=== PATIENT | male | born 1945 | race Caucasian/White ===

== ENCOUNTER 2019-12-27 23:54 | Inpatient (IN) | payer OTHER ==
[~2019-12-27] VITALS: Ht 167.6 cm; Wt 79.8 kg
--- NOTE | ~2019-12-27 | CON ---
[address] [address] CONSULTATION Name: FOZIA ALONSO Room: [address] IN M.R.#: [id number] Admission: 12/28/19 Attend Phys: Laney Trejo MD Discharge: Date of : 47 Report #: [id number] THIS REPORT FOR: //name// cc: KARUNA Clayton family physician/PCP KARUNA - No family physician/PCP ~ THIS REPORT FOR: //name// CC: KARUNA physician/PCP Laney Trejo CONSULTING PHYSICIAN: Dr. Trejo. REASON FOR CONSULTATION: End-stage kidney disease. HISTORY OF PRESENT ILLNESS: A 74-year-old gentleman with history of end-stage kidney disease, on hemodialysis Sunday, Sunday and Sunday. Had his last dialysis on Sunday, admitted with chest pain. He had serial troponins which were unrevealing and was found to have elevated potassium value of 6.3. He had a chest x-ray, which did not show any evidence of pulmonary edema, appears to be comfortable. He is no longer having any chest pain or shortness of breath. He is hoping to go home today and overall appears to be comfortable. REVIEW OF SYSTEMS: Constitutional, psych, heme, eyes, ENT, respiratory, cardiac, GI, , endocrine, all negative except as documented above. PAST MEDICAL HISTORY: End-stage kidney disease, coronary artery disease, hypertension, secondary hyperparathyroidism. MEDICATIONS: Reviewed. SOCIAL HISTORY: Former smoker. FAMILY HISTORY: Not pertinent in this 74-year-old gentleman. PHYSICAL EXAMINATION: VITAL SIGNS: Blood pressure 116/53, pulse 57, temperature 36.4, respirations 16. GENERAL: No acute distress. EYES: Open. EARS: Externally normal. NECK: Supple. CARDIOVASCULAR: Regular rate and rhythm. LUNGS: No crackles. ABDOMEN: Soft. MUSCULOSKELETAL: Nontender. PSYCHIATRIC: Awake, [place] [address] CONSULTATION Name: FOZIA ALONSO Room: [address]#: [id number] Admission: 12/28/19 Attend Phys: Laney Trejo MD Discharge: Date of : 47 Report #: [id number] LABORATORY DATA: White cell count 7.6, hemoglobin 11.2, platelets 201. Sodium 137, potassium 6.3, chloride 96, bicarbonate 31, BUN 43, creatinine 9.5, glucose 121, calcium 9.5, magnesium 2.9. ASSESSMENT: 1. End-stage kidney disease, hemodialysis Sunday, Sunday and Sunday at the [facility]. 2. Hyperkalemia. Has been consuming higher potassium foods recently. No constipation. 3. Secondary hyperparathyroidism, on sevelamer. PLAN: We will plan a short dialysis today for 2 hours to help lower the potassium. The patient was educated on low potassium diet and will be followed by renal dietitian at the outpatient dialysis unit. We would avoid morphine in the setting of end-stage kidney disease. A discharge planning for later today after dialysis is okay from my standpoint. He will have his routine dialysis tomorrow, which can be done as an outpatient or if he remains inpatient, we will plan to dialyze him here tomorrow. Thank you for requesting my opinion in the care and management of this patient. By: 1148 1931Abizbigniew Ponce MD /nt
[2019-12-27 23:56] VITALS: BP 130/76
[2019-12-28 00:49] LABS: ABSOLUTE EOSINOPHILS 0.1 thou/uL (0.0-0.7); ABSOLUTE LYMPHOCYTES 0.9 thou/uL (0.8-5.3); ABSOLUTE MONOCYTES 0.8 thou/uL (0.0-1.2); ABSOLUTE NEUTROPHILS 5.7 thou/uL (1.6-8.1); BASOPHILS 0.5 %; EOSINOPHILS 1.2 %; HEMATOCRIT 32.1 % (42.0-52.0); HEMOGLOBIN 11.2 gm/dL (14.0-18.0); LYMPHOCYTES 12.2 %; MCH 34.2 pg (26.0-34.0); MCHC 34.9 g/dL (28.0-37.0); MCV 97.9 fL (80.0-100.0); MONOCYTES 10.5 %; MPV 7.4 fl. (7.2-11.1); NUCLEATED RBCS 0 /100WBC; PLATELET COUNT* 201 thou/uL (150-400); POLYS 75.6 %; RBC 3.27 mil/uL (4.50-6.00); RDW-CV 15.1 % (10.5-14.5); WBC 7.6 thou/uL (4.0-11.0)
[2019-12-28 01:06] LABS: CALCIUM 9.5 mg/dL (8.5-10.1); CREATININE 9.5 mg/dL (0.6-1.3)
[2019-12-28 01:10] LABS: POTASSIUM 6.3 mmol/L (3.5-5.1)
[2019-12-28 01:16] LABS: ALBUMIN 3.8 g/dL (3.4-5.0); MAGNESIUM 2.9 mg/dL (1.8-2.4); TOTAL BILIRUBIN 0.4 mg/dL (<0.1-1.0); TOTAL PROTEIN 7.4 g/dL (6.4-8.2)
[2019-12-28] MEDS ORDERED: ATIVAN1 M1 PO (02:09)
[2019-12-28] MEDS ORDERED: CARAFATE1 GM PO (02:09)
[2019-12-28 02:16] VITALS: BP 125/66
[2019-12-28 02:30] VITALS: BP 174/96
[2019-12-28] MEDS ORDERED: PROAIR HFA8.5 GM INH (03:06)
[2019-12-28] MEDS ORDERED: LIPITOR 40 MG T40 M1 PO (03:08)
[2019-12-28] MEDS ORDERED: ASPIRIN EC81 M1 PO (03:08)
[2019-12-28] MEDS ORDERED: WELLBUTRIN XL300 MG PO (03:09)
[2019-12-28] MEDS ORDERED: CARVEDILOL25 MG PO (03:09)
[2019-12-28] MEDS ORDERED: FLOMAX0.4 MG PO ×2 (03:10→03:11)
[2019-12-28] MEDS ORDERED: DIALYVITE TABL1 EACH PO (03:10)
[2019-12-28] MEDS ORDERED: FISH OIL 1,0001 EAC9 PO (03:10)
[2019-12-28] MEDS ORDERED: FLONASE 0.05%50 MCG NARES (03:11)
[2019-12-28] MEDS ORDERED: FUROSEMIDE 20 M20 MG PO ×2 (03:13→03:14)
[2019-12-28] MEDS ORDERED: VISTARIL 25 MG25 M1 PO (03:13)
[2019-12-28] MEDS ORDERED: NITROSTAT0.4 M1 SUBLING (03:23)
[2019-12-28] MEDS ORDERED: PRAZOSIN 1 MG CA1 M1 PO (03:24)
[2019-12-28] MEDS ORDERED: RENVELA0.8 GM PO (03:25)
[2019-12-28] MEDS ORDERED: DESYREL150 MG PO (03:27)
[2019-12-28] MEDS ORDERED: ONDANSETRON HCL4 M2 PO (03:28)
[2019-12-28] MEDS ORDERED: XANAX 0.5 MG0.5 M1 PO (03:28)
[2019-12-28] MEDS ORDERED: ZOLOFT100 MG PO (03:29)
[2019-12-28 04:20] VITALS: BP 103/57
[2019-12-28 08:23] VITALS: BP 116/53
--- NOTE | 2019-12-28 10:40 | EKG ---
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
[2019-12-28 12:37] VITALS: BP 108/49
[2019-12-28 20:00] VITALS: BP 116/67; BP 129/65
[2019-12-29 00:10] VITALS: BP 87/51
[2019-12-29 04:34] VITALS: BP 86/37
[2019-12-29 06:07] VITALS: BP 110/55
[2019-12-29 07:59] VITALS: BP 124/52
[2019-12-29] MEDS ORDERED: LOPRESSOR50 MG PO (09:34)
[2019-12-29] MEDS ORDERED: TOPROL XL25 MG PO (09:35)
[2019-12-29 10:10] LABS: ABSOLUTE EOSINOPHILS 0.1 thou/uL (0.0-0.7); ABSOLUTE LYMPHOCYTES 0.8 thou/uL (0.8-5.3); ABSOLUTE MONOCYTES 0.6 thou/uL (0.0-1.2); ABSOLUTE NEUTROPHILS 5.1 thou/uL (1.6-8.1); BASOPHILS 0.5 %; EOSINOPHILS 1.8 %; HEMATOCRIT 32.7 % (42.0-52.0); HEMOGLOBIN 11.3 gm/dL (14.0-18.0); LYMPHOCYTES 11.7 %; MCH 33.9 pg (26.0-34.0); MCHC 34.6 g/dL (28.0-37.0); MONOCYTES 9.5 %; MPV 7.4 fl. (7.2-11.1); NUCLEATED RBCS 0 /100WBC; PLATELET COUNT* 187 thou/uL (150-400); POLYS 76.5 %; RBC 3.33 mil/uL (4.50-6.00); RDW-CV 15.2 % (10.5-14.5); WBC 6.6 thou/uL (4.0-11.0)
[2019-12-29 10:17] LABS: CALCIUM 9.2 mg/dL (8.5-10.1); CREATININE 8.9 mg/dL (0.6-1.3); MAGNESIUM 2.4 mg/dL (1.8-2.4); PHOSPHORUS* 5.3 mg/dL (2.5-4.9); POTASSIUM 5.6 mmol/L (3.5-5.1)
[2019-12-29 11:30] VITALS: BP 121/59
[2019-12-29 14:06] VITALS: BP 121/59
[2019-12-30 07:36] LABS: HEPATITIS B SURFACE AG Negative (Negative)
== END 2019-12-29 18:20 | disposition home or self-care (01) | DRG 304 ==
LOC: M.ERS 23:54 → M.2W 12-28 01:38 → M.TBA-ER 12-28 01:38 → M.2W 12-28 02:25
PROVIDERS: Emergency Medicine Emergency Medical Services; Internal Medicine Nephrology; ADMIT Internal Medicine
PROC: 5A1D70Z Performance of Urinary Filtration, Intermittent, Less than 6 Hours Per Day (ICD-10-PCS; principal; 2019-12-28)
PROC: 5A1D70Z Performance of Urinary Filtration, Intermittent, Less than 6 Hours Per Day (ICD-10-PCS; 2019-12-29)
DX: I16.1 Hypertensive emergency (principal); N18.6 End stage renal disease; N25.81 Secondary hyperparathyroidism of renal origin; R07.89 Other chest pain; I12.0 Hypertensive chronic kidney disease with stage 5 chronic kidney disease or end stage renal disease; F41.9 Anxiety disorder, unspecified; E87.5 Hyperkalemia; Z99.2 Dependence on renal dialysis; Z95.5 Presence of coronary angioplasty implant and graft; Z79.899 Other long term (current) drug therapy; Z87.891 Personal history of nicotine dependence; Z88.8 Allergy status to other drugs, medicaments and biological substances

== ENCOUNTER 2020-01-02 05:48 | Inpatient (IN) | payer OTHER ==
[2020-01-02] VITALS (12 sets, daily range): BP systolic 102–171; BP diastolic 53–86
[~2020-01-02] VITALS: Ht 167.6 cm; Wt 80.7 kg
--- NOTE | ~2020-01-02 | CON ---
[address] [address] CONSULTATION Name: FOZIA ALONSO Room: [address] IN M.R.#: [id number] Admission: 01/02/20 Attend Phys: Esteban Casarez MD Discharge: Date of : 47 Report #: [id number] THIS REPORT FOR: //name// cc: Kamron Baron MD, Santosh MD ~ THIS REPORT FOR: //name// CC: Esteban Steen leydi Baron DATE OF SERVICE: 01/02/2020 REQUESTING PHYSICIAN: Esteban Casarez MD REASON FOR CONSULTATION: Assist in providing dialysis. HISTORY OF PRESENT ILLNESS: The patient is a very pleasant 74-year-old gentleman with medical history significant for end-stage renal disease, hypertension, coronary artery disease, BPH, presents to the hospital with complaints of chest pain. The patient states that the pain started a couple days ago. It was off and on, but now it is very severe, retrosternal and intractable. Pain associated with some nausea and not feeling well. He was seen by saw filer, was taken to cardiac microbiology lab analyst and cardiac catheterization was performed. The 2 stents were placed in the coronaries. I do not know, which arteries were angioplastied. We do not have report from the cardiac catheterization yet. MEDICAL HISTORY: 1. End-stage renal disease, on dialysis Sunday, Sunday, Sunday schedule at [facility]. 2. Hypertension. 3. BPH. 4. Coronary artery disease. 5. Hypercholesterolemia. MEDICATIONS: Prior to admission reviewed. FAMILY HISTORY: Positive for coronary artery disease and hypertension. SOCIAL HISTORY: No tobacco, no alcohol abuse. PAST SURGICAL HISTORY: He has a stent placed in the coronaries in the past and also has creation of the left radiocephalic fistula. REVIEW OF SYSTEMS: Positive for the symptoms [place] [address] CONSULTATION Name: FOZIA ALONSO Room: [address] IN [facility]#: [id number] Admission: 01/02/20 Attend Phys: Esteban Casarez MD Discharge: Date of : 47 Report #: [id number] Post-procedure, now he feels much better, no more chest pain. PHYSICAL EXAMINATION: GENERAL: Awake, alert, oriented, no acute distress. VITAL SIGNS: Now blood pressure is 160/86, heart rate 81, afebrile. HEENT: Pupils are round. NECK: Supple. LUNGS: Clear. CARDIOVASCULAR: Regular rate. ABDOMEN: Soft. LOWER EXTREMITIES: No edema. ASSESSMENT: 1. End-stage renal disease. 2. Coronary artery disease with unstable angina. 3. Hypertension. 4. Hyperlipidemia. PLAN: The patient had an emergent cardiac catheterization done with angioplasty of coronary arteries and placement of 2 stents. He feels much better. Today is his dialysis day, so we will take him to dialysis. Thank you very much. By: 1151 2150Alepablito Nassar MD /JH
[~2020-01-02 05:48] MED LIST: ASPIRIN EC81 M1 PO; ATIVAN1 M1 PO; CARAFATE1 GM PO; CARVEDILOL25 MG PO; DESYREL150 MG PO; DIALYVITE TABL1 EACH PO; FISH OIL 1,0001 EAC9 PO; FLOMAX0.4 MG PO; FLONASE 0.05%50 MCG NARES; FUROSEMIDE 20 M20 MG PO; LIPITOR 40 MG T40 M1 PO; LOPRESSOR50 MG PO; NITROSTAT0.4 M1 SUBLING; ONDANSETRON HCL4 M2 PO; PRAZOSIN 1 MG CA1 M1 PO; PROAIR HFA8.5 GM INH; RENVELA0.8 GM PO; TOPROL XL25 MG PO; VISTARIL 25 MG25 M1 PO; WELLBUTRIN XL300 MG PO; XANAX 0.5 MG0.5 M1 PO; ZOLOFT100 MG PO
[2020-01-02 06:16] LABS: ABSOLUTE EOSINOPHILS 0.1 thou/uL (0.0-0.7); ABSOLUTE LYMPHOCYTES 1.2 thou/uL (0.8-5.3); ABSOLUTE MONOCYTES 0.8 thou/uL (0.0-1.2); ABSOLUTE NEUTROPHILS 4.6 thou/uL (1.6-8.1); BASOPHILS 0.6 %; EOSINOPHILS 1.7 %; HEMATOCRIT 33.6 % (42.0-52.0); HEMOGLOBIN 11.7 gm/dL (14.0-18.0); LYMPHOCYTES 17.4 %; MCH 33.9 pg (26.0-34.0); MCHC 34.7 g/dL (28.0-37.0); MCV 97.6 fL (80.0-100.0); MONOCYTES 11.7 %; MPV 7.1 fl. (7.2-11.1); NUCLEATED RBCS 0 /100WBC; PLATELET COUNT* 205 thou/uL (150-400); POLYS 68.6 %; RBC 3.44 mil/uL (4.50-6.00); RDW-CV 14.9 % (10.5-14.5); WBC 6.8 thou/uL (4.0-11.0)
[2020-01-02 06:25] LABS: CALCIUM 9.5 mg/dL (8.5-10.1); POTASSIUM 4.2 mmol/L (3.5-5.1)
[2020-01-02 06:29] LABS: PROTIME 10.2 Seconds (9.20-11.50)
[2020-01-02 06:40] LABS: ALBUMIN 4.4 g/dL (3.4-5.0); TOTAL BILIRUBIN 0.5 mg/dL (<0.1-1.0); TOTAL PROTEIN 8.1 g/dL (6.4-8.2)
--- NOTE | 2020-01-02 09:15 | EKG ---
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 : 1945 Requested By: Gloria River Order Number: [id number] MD: Enio Cruz Measurements Intervals [place] Rate: 71 P: 71 FL: 189 QRS: 53 QRSD: 87 T: 111 QT: 388 QTc: 422 Interpretive Statements Sinus rhythm Repol abnrm suggests ischemia, diffuse leads Baseline wander in lead(s) V1,V2 Compared to ECG 12/27/2019 23:56:20 Possible ischemia now present Electronically Signed On 01-02-2020 9:14:19 CDT by Enio Cruz [email or web address] <ELECTRONICALLY SIGNED> By: Enio Cruz MD, FACC 01/02/20 0914 0552 0552 Enio Cruz MD, [facility] /EPI
--- NOTE | 2020-01-02 14:28 | CARD ---
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 Procedure Narrative The patient was brought electively to the Cardiac Catheterization Laboratory and was prepped and draped in a sterile manner. The right wrist was infiltrated with 2% Lidocaine subcutaneous anesthesia. A 6 Fr Slender [place] sheath was inserted into the right radial artery. Coronary angiography was performed using coronary diagnostic catheters. The right coronary system was accessed and visualized with a Diagnostic 6 Fr JR 4 catheter. The left coronary system was accessed and visualized with a Diagnostic 6 Fr JL 4 catheter. The left ventricle was accessed and visualized with a Diagnostic 6 [place] [address] CARDIAC CATH REPORT Name: FOZIA ALONSO Room: [address]#: [id number] Admission: 01/02/20 Attend Phys: Esteban Casarez MD Discharge: Date of : 47 Report #: [id number] Pigtail catheter. Left ventricular/Aortic Valve gradient assessed via catheter pullback. Left ventriculogram was performed in FLEMING projection. Closure device was deployed with a Fr vascband. The patient tolerated the procedure well and there were no complications associated with the procedure. There was no hematoma. Intraoperative Conscious Sedation Sedation start time: 09:16 Case end Time: 10:54 Fentanyl 50.0 mcg Versed 4.0 mg Fluoro Time: 21.2 minutes Dose: DAP 240751 cGycm2 2864 mGy Contrast Type and Amount: Visipaque 370 ml Coronary Angiography The patient's coronary anatomy is co- dominant. Diagnostic Cath Left Main 30% distal stenosis LAD 50% mid stenosis Diagonal 2 90% ostial stenosis Circumflex 90% stenosis after the first marginal distal stent with 0% restenosis OM2 70% proximal stenosis noted Right Coronary Abnormal anterior takeoff from the right coronary cusp with subtotal occlusion with a 99% proximal and 99% mid stenosis. There was YANIRA grade II flow with retrograde filling by collaterals from the left coronary artery. Left Ventriculography The left ventricular ejection fraction is estimated to be 55-60%. Left ventricular wall motion abnormalities are not present. There is no mitral insufficiency. Hemodynamics The aortic pressure is 79/41 mmHg with a mean of 56 mmHg. The left ventricular pressure is 112/1 mmHg with a mean of mmHg. The left ventricular end diastolic pressure is 13 mmHg. There was no gradient across the aortic valve upon pullback. Pullback from the left ventricle to the aorta revealed no gradient across the aortic valve. PCI Technique Lesion Anticoagulation was achieved with Heparin. Patient was preloaded with 7.5 ml Aggrastat. Percutaneous coronary [place] [address] CARDIAC CATH REPORT Name: FOZIA ALONSO Room: [address]#: [id number] Admission: 01/02/20 Attend Phys: Esteban Casarez MD Discharge: Date of : 46 Report #: [id number] the mid right coronary artery. The lesion stenosis prior to intervention was 99% with YANIRA 2 flow. A MPA Guide Catheter was used to engage the rca ostium. A choice PT extra support Interventional Guidewire was used to cross the lesion. BALLOON DILATION A Balloon catheter 2.5 x 12 mm was inserted and inflated up to 12atm for 15seconds. Repeat angiography revealed the following post-dilatation results: 40% stenosis with small dissection. Additional Inflation: 14atm for 15seconds. BMW wire was unable to cross the stenosis STENT DEPLOYMENT A drug-eluting stent 2.5x 12 mm was inserted and inflated up to 11atm for 10 secondsseconds. Repeat angiography revealed the following post-stent deployment results: 30% stenosis. Additional Inflation: 12atm for 15seconds. Unable to place a 28 x 2.5 mm drug Xience eluting stent because of lack of guide support. After placing a shorter stent distally, a second drug eluting stent which was 2.5 x 18 mm stent was placed proximally so that there was minimal overlap between the 2 stents. That stent was inserted and inflated up to 14 delma for 19 seconds. POST STENT DEPLOYMENT BALLOON DILATION A Balloon catheter 2.5 x 12 mm was inserted and inflated up to 18atm for 15 secondsseconds. Repeat angiography revealed the following post-dilatation results: 0% stenosis. Additional Inflation: 20atm for 15seconds. Final angiography reveals 0 % stenosis with YANIRA 3 flow. COMMENTS Final result noted that the distal rca beyond the stent had a narrow lumen. Conclusion 1. 90% stenosis of the ostium of the second diagonal branch 2. 90% stenosis of the circumflex beyond the first marginal branch. No restenosis noted of a stent in the distal circumflex. 3. subtotal 99% stenosis of the rca 4. LVEF 55-60% 5. successful placement of 2 drug eluting stents in the rca Recommendations Plan stenting of the diagonal branch and circumflex at a later [address] [place] [address] CARDIAC CATH REPORT Name: FOZIA ALONSO Room: [address] IN M.R.#: [id number] Admission: 01/02/20 Attend Phys: Esteban Casarez MD Discharge: Date of : 47 Report #: [id number] Medications Administered Clopidogrel <ELECTRONICALLY SIGNED> By: Enio Cruz MD, FACC 01/02/20 1427 142 1427Dasolange Cruz MD, FACC /INF
--- NOTE | 2020-01-02 14:47 | EKG ---
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1945 Requested By: Enio Cruz Order Number: [id number] Shaista MD: Enio Cruz Measurements Intervals [place] Rate: 62 P: 50 FL: 205 QRS: 6 QRSD: 90 T: 117 QT: 410 QTc: 417 Interpretive Statements Sinus rhythm Inferior infarct, old Lateral leads are also involved Compared to ECG 01/02/2020 05:52:20 Myocardial infarct finding now present Possible ischemia no longer present Electronically Signed On 01-02-2020 14:46:03 CDT by Enio Cruz [email or web address] <ELECTRONICALLY SIGNED> By: Enio Cruz MD, [facility] 01/02/20 1446 1404 1404 Enio Cruz MD, [facility] /EPI
--- NOTE | 2020-01-02 15:22 | CON ---
[address] [address] CONSULTATION Name: FOZIA ALONSO Room: [address] IN .R.#: [id number] Admission: 01/02/20 Attend Phys: Esteban Casarez MD Discharge: Date of : 47 Report #: [id number] THIS REPORT FOR: //name// cc: Kamron Baron MD, Santosh MD ~ THIS REPORT FOR: //name// CC: Esteban Baron HISTORY OF PRESENT ILLNESS: The patient is a 74-year-old single white male who I was asked to see in the Emergency Room after he complained of chest pain. The patient is single and not very active at this time. He receives most of his medical care at the [facility]. According to the patient, he presented with shortness of breath several years ago. He was found to have coronary artery disease and had a stent placed from the right femoral artery. He apparently took Plavix for a year. He subsequently developed end-stage renal disease and about 14 months ago, he was placed on hemodialysis. He does have a fistula in his left arm. He goes to dialysis Sunday, Sunday and Sunday. He was doing well until the past several weeks, he has been having intermittent pressure in his chest, goes into his arms and jaw. It can make him nauseated. Describes a heavy sensation. Today, he woke up and was driving to dialysis. He again had pressure in his chest. He was told to come to the hospital and he drove himself. At this time, the pain is improved. He was given nitroglycerin. He denied the pain being related to food. He has had no fever, cough, bleeding. Denied trauma to his chest or rash. He denies any exertional dyspnea, palpitations, syncope, or peripheral edema. PAST MEDICAL HISTORY: Otherwise, he has had previous wrist surgery, cataract extraction, glucose intolerance, hypertension, hyperlipidemia. MEDICATIONS: Consist of metoprolol, which recently decreased to just 0.5 mg twice a day because of low blood pressure. He takes aspirin, Lipitor, Wellbutrin, Flomax, prazosin, Xanax, and sertraline. He uses albuterol inhaler. ALLERGIES: HE HAS AN ALLERGY TO TERAZOSIN, LISINOPRIL, NIACIN. FAMILY HISTORY: Negative for heart disease. SOCIAL HISTORY: He is single, lives in [place]. 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 Quit smoking years ago. No longer drinks alcohol. REVIEW OF SYSTEMS: No history of stroke. He has asthma. No history of GI bleeding. No liver disease. No cancer. He has PTSD. No chronic skin condition. PHYSICAL EXAMINATION: [place] [address] CONSULTATION Name: FOZIA ALONSO Room: [address] IN [facility]#: [id number] Admission: 01/02/20 Attend Phys: Esteban Casarez MD Discharge: Date of : 47 Report #: [id number] GENERAL: Revealed an elderly male, lying in bed, appeared in no distress. VITAL SIGNS: He had a blood pressure of 130/80, pulse 70, he is afebrile. HEENT: He was anicteric. Conjunctivae pink. Mucous membranes are moist. NECK: Veins nondistended. No carotid bruits. CHEST: Clear to auscultation. CARDIOVASCULAR: Regular rate and rhythm, no murmur or rub. ABDOMEN: Soft. EXTREMITIES: Had no edema. Posterior tibial pulse 2+ bilaterally. SKIN: Warm, dry. NEUROLOGIC: Nonfocal. RADIOLOGICAL STUDIES: ECG, sinus rhythm, nonspecific ST and T-wave change. His workup, he had a portable chest x-ray that showed normal heart size and clear lung kim. LABORATORY DATA: Sodium 140, BUN 50, creatinine 10.0, glucose 175. Liver function studies were normal. Troponin 0.07. BNP 3227. White blood cell count 6.8 and hematocrit 33.6. IMPRESSION AND RECOMMENDATIONS: 1. Unstable angina. Previous stent. Recommend cardiac catheterization. 2. Hyperlipidemia. The patient is on a statin drug. 3. End-stage renal disease. The patient is on hemodialysis. 4. Glucose intolerance. 5. Posttraumatic stress disorder. <ELECTRONICALLY SIGNED> By: Enio Cruz MD, FACC 01/02/20 1522 0829 0915Dasolange Cruz MD, FACC /nt
[2020-01-03] VITALS: BP 132/75
[2020-01-03 04:00] VITALS: BP 107/41
[2020-01-03 04:59] LABS: ABSOLUTE EOSINOPHILS 0.1 thou/uL (0.0-0.7); ABSOLUTE LYMPHOCYTES 0.8 thou/uL (0.8-5.3); ABSOLUTE MONOCYTES 0.9 thou/uL (0.0-1.2); ABSOLUTE NEUTROPHILS 6.4 thou/uL (1.6-8.1); BASOPHILS 0.3 %; EOSINOPHILS 1.4 %; HEMATOCRIT 31.8 % (42.0-52.0); HEMOGLOBIN 11.1 gm/dL (14.0-18.0); LYMPHOCYTES 9.7 %; MCH 34.4 pg (26.0-34.0); MCV 98.1 fL (80.0-100.0); MONOCYTES 11.1 %; MPV 7.8 fl. (7.2-11.1); NUCLEATED RBCS 0 /100WBC; PLATELET COUNT* 186 thou/uL (150-400); POLYS 77.5 %; RBC 3.24 mil/uL (4.50-6.00); RDW-CV 14.8 % (10.5-14.5); WBC 8.3 thou/uL (4.0-11.0)
[2020-01-03 05:22] LABS: ANION GAP 10 mmol/L (7-16); BUN 25 mg/dL (7-18); CALCIUM 8.6 mg/dL (8.5-10.1); CHLORIDE 97 mmol/L (98-107); CHOLESTEROL 117 mg/dL (<200); CO2 29 mmol/L (21-32); CREATININE 6.5 mg/dL (0.6-1.3); GLUCOSE 89 mg/dL (70-99); HDL CHOLESTEROL 46 mg/dL (>40); LDL CHOLESTEROL 50 mg/dL (<100); POTASSIUM 4.5 mmol/L (3.5-5.1); SERUM ASSESSMENT CLEAR; SODIUM 136 mmol/L (136-145); TC:HDL 2.5 Ratio (Not establshd); TRIGLYCERIDE 108 mg/dL (<150); VLDL 22 mg/dL (<40)
[2020-01-03 05:23] LABS: TROPONIN-I LEVEL 2.15 ng/mL (<0.06)
[2020-01-03 08:00] VITALS: BP 112/57
--- NOTE | 2020-01-03 11:23 | EKG ---
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1945 Requested By: Enio Cruz Order Number: [id number] Reading MD: Harjeet Zepeda Measurements Intervals [place] Rate: 66 P: 46 HI: 188 QRS: 8 QRSD: 80 T: 94 QT: 414 QTc: 434 Interpretive Statements Sinus rhythm Low voltage, precordial leads Nonspecific repol abnormality, lateral leads Baseline wander in lead(s) V6 Compared to ECG 01/02/2020 14:04:09 Low QRS voltage now present Early repolarization now present Myocardial infarct finding no longer present Electronically Signed On 01-03-2020 11:21:35 CDT by Harjeet Zepeda [email or web address] <ELECTRONICALLY SIGNED> By: Tamara Zepeda MD, [facility] 01/03/20 1121 4 4 Tamara Zepeda MD, [facility] /EPI
[2020-01-03 12:00] VITALS: BP 136/74
[2020-01-03 16:00] VITALS: BP 144/70
[2020-01-04] VITALS: BP 119/55
[2020-01-04 03:07] LABS: GLYCOHEMOGLOBIN (HGB A1C) 5.2 % (4.8-5.6)
[2020-01-04 04:00] VITALS: BP 108/60
[2020-01-04 05:09] LABS: ABSOLUTE EOSINOPHILS 0.1 thou/uL (0.0-0.7); ABSOLUTE LYMPHOCYTES 1.2 thou/uL (0.8-5.3); ABSOLUTE NEUTROPHILS 5.2 thou/uL (1.6-8.1); BASOPHILS 0.4 %; EOSINOPHILS 1.9 %; HEMATOCRIT 29.1 % (42.0-52.0); HEMOGLOBIN 10.3 gm/dL (14.0-18.0); LYMPHOCYTES 15.4 %; MCH 34.5 pg (26.0-34.0); MCHC 35.5 g/dL (28.0-37.0); MCV 97.3 fL (80.0-100.0); MONOCYTES 12.8 %; MPV 7.8 fl. (7.2-11.1); NUCLEATED RBCS 0 /100WBC; PLATELET COUNT* 172 thou/uL (150-400); POLYS 69.5 %; WBC 7.5 thou/uL (4.0-11.0)
[2020-01-04 05:31] LABS: CALCIUM 8.6 mg/dL (8.5-10.1); POTASSIUM 5.1 mmol/L (3.5-5.1)
[2020-01-04 05:41] LABS: CREATININE 9.2 mg/dL (0.6-1.3)
[2020-01-04 07:45] VITALS: BP 118/53
[2020-01-04 11:51] VITALS: BP 112/57
[2020-01-04 16:00] VITALS: BP 111/42
[2020-01-04 20:00] VITALS: BP 126/49
[2020-01-05] VITALS (17 sets, daily range): BP systolic 81–138; BP diastolic 29–89
[2020-01-05 04:53] LABS: ABSOLUTE EOSINOPHILS 0.1 thou/uL (0.0-0.7); ABSOLUTE LYMPHOCYTES 1.2 thou/uL (0.8-5.3); ABSOLUTE MONOCYTES 0.7 thou/uL (0.0-1.2); BASOPHILS 0.2 %; EOSINOPHILS 1.7 %; HEMATOCRIT 28.3 % (42.0-52.0); HEMOGLOBIN 10.3 gm/dL (14.0-18.0); LYMPHOCYTES 16.8 %; MCH 35.4 pg (26.0-34.0); MCHC 36.4 g/dL (28.0-37.0); MCV 97.3 fL (80.0-100.0); MONOCYTES 10.1 %; MPV 7.8 fl. (7.2-11.1); NUCLEATED RBCS 0 /100WBC; PLATELET COUNT* 165 thou/uL (150-400); POLYS 71.2 %; RDW-CV 14.8 % (10.5-14.5); WBC 7.1 thou/uL (4.0-11.0)
[2020-01-05 05:17] LABS: CALCIUM 8.5 mg/dL (8.5-10.1); CREATININE 11.2 mg/dL (0.6-1.3); POTASSIUM 5.8 mmol/L (3.5-5.1)
--- NOTE | 2020-01-05 17:22 | CARD ---
[facility] [address] [place] [address] CARDIAC CATH REPORT Name: FOZIA ALONSO Room: [address] IN [facility]#: [id number] Admission: 01/02/20 Attend Phys: Esteban Casarez MD Discharge: Date of : 47 Report #: [id number] THIS REPORT FOR: //name// cc: Kamron Baron MD, Santosh MD ~ APPROVED REPORT Study performed: 01/05/2020 13:38:03 Patient Details Patient Status: In-Patient Room #: 201 The patient is a 74 year-old male Event Personnel Enio Cruz Sales Forecast Analyst, Perico Gonzalez RN Metal Bonding Crib AttendantFranc Tina RN Monitor, Deanna King, RTR Scrub Procedures Performed Art Access - R radial artery PATRICIA Place w/wo Plasty diagonal C[address] w/wo Plasty Single CIRC [id number] Hemostasis with Hemoband Indication Chest pain Risk Factors Hypercholesterolemia, Coronary Artery DiseaseRenal Failure Admission/Lab Medications/Medications given during procedure Heparin Unfract. Procedure Narrative The patient was brought electively to the Cardiac Catheterization Laboratory and was prepped and draped in a sterile manner. The right wrist was infiltrated with 1% Lidocaine subcutaneous anesthesia. A Slender Glidesheath sheath was inserted into the right radial artery. Coronary angiography was performed using coronary diagnostic catheters. The right coronary system was accessed and visualized with a 6Fr JR4 catheter. The left coronary system was accessed and visualized with a Guide catheter. The left ventricle was accessed and visualized with a jr4 catheter. Left ventricular/Aortic Valve gradient assessed via catheter pullback. Closure device was deployed with a 6 Fr vascband. The patient tolerated the procedure [place] [address] CARDIAC CATH REPORT Name: FOZIA ALONSO Hugo Room: [address]#: [id number] Admission: 01/02/20 Attend Phys: Esteban Casarez MD Discharge: Date of : 46 Report #: [id number] there were no complications associated with the procedure. There was no hematoma. Intraoperative Conscious Sedation Sedation start time: 14:31 Case end Time: 15:34 Fentanyl 50 mcg Versed 4 mg Fluoro Time: 13.7 minutes Dose: DAP 600014 cGycm2 2153 mGy Contrast Type and Amount: Visipaque 200 ml Coronary Angiography The patient's coronary anatomy is right dominant. Diagnostic Cath Left Main 30% distal stenosis LAD 60% stenosis after the second diagonal branch Diagonal 2 90% ostial stenosis Circumflex 90% stenosis after the first marginal branch. Stent in mid circumflex had 0% stenosis. OM1 60% mid stenosis Right Coronary stent noted in proximal rca without restenosis. 60% stenosis noted in the mid rca beyond the stent Left Ventriculography Left Ventriculography was not performed. Hemodynamics The aortic pressure is 94/43 mmHg with a mean of 63 mmHg. The left ventricular pressure is 102/5 mmHg with a mean of mmHg. The left ventricular end diastolic pressure is 5 mmHg. There was no gradient across the aortic valve upon pullback. Pullback from the left ventricle to the aorta revealed no gradient across the aortic valve. PCI Technique Lesion Anticoagulation was achieved with Heparin. Patient was preloaded with Plavix. Percutaneous coronary intervention was performed on the mid circumflex artery segment. The lesion stenosis prior to intervention was 90% with YANIRA 3 flow. A 6F XB LAD 3.5 Guide Catheter was used to engage the lm ostium. A IG: BMW 190cm Interventional Guidewire was used to cross the lesion. BALLOON DILATION A Balloon catheter Euphora SC 2.25x10 was inserted [place] [address] CARDIAC CATH REPORT Name: FOZAI ALONSO Room: [address]#: [id number] Admission: 01/02/20 Attend Phys: Esteban Casarez MD Discharge: Date of : 46 Report #: [id number] 14.00atm for 15seconds. Repeat angiography revealed the following post-dilatation results: 40% stenosis. Additional Inflation: 16.00atm for 16seconds. Additional Inflation: 16.00atm for 15seconds. Stent required a second BMW wire in the circumflex to act as a karla wire for support. STENT DEPLOYMENT A drug-eluting stent [place] RX Stent 2.25X8mm was inserted and inflated up to 18.00atm for 19seconds. Repeat angiography revealed the following post-stent deployment results: 0% stenosis. Additional Inflation: 20.00atm for 16seconds. Additional Inflation: 22.00atm for 18seconds. Final angiography reveals 0 % stenosis with YANIRA 3 flow. PCI Technique Lesion 2 Percutaneous Coronary Intervention was performed on the second diagnonal branch segment. Patient was preloaded with Plavix. Percutaneous coronary intervention was performed on the second diagonal branch segment. The lesion stenosis prior to intervention was 90% with YANIRA 3 flow. A xblad3.5 Guide Catheter was used to engage the lm ostium. A bmw Interventional Guidewire was used to cross the lesion. Balloon Dilation A Balloon catheter Euphora SC 2.25x10 was inserted and inflated up to 12.00atm for 15seconds. Repeat angiography revealed the following post-dilatation results: 40% stenosis. Additional Inflation: 12.00atm for 13seconds. Second BMW wire was inserted into the distal lad to protect the LAD during PTCA of the ostium of the diagonal branch. Stent Deployment A drug-eluting stent Rey RX Stent 2.5X12mm was inserted and inflated up to 13.00atm for 13seconds. Repeat angiography revealed the following post-stent deployment results: 0% stenosis. Additional Inflation: 14.00atm for 20seconds. Final angiography reveals 0 % stenosis with YANIRA 3 flow. Conclusion 1. No restenosis noted of stents in the proximal rca and mid circumflex artery. 2. 90% stenosis noted in the ostium of the second diagonal branch of the lad, and 90% stenosis noted in the mid circumflex artery after [facility] [address] [place] [address] CARDIAC CATH REPORT Name: FOZIA ALONSO Room: [address] IN .R.#: [id number] Admission: 01/02/20 Attend Phys: Esteban Casarez MD Discharge: Date of : 46 Report #: [id number] the first marginal branch. 3. successful placement of drug eluting stents in the mid circumflex and ostium of the second diagonal branch of the LAD Recommendations Cardiac Rehabilitation Referral Aggressive Medical Therapy Medications Administered Clopidogrel <ELECTRONICALLY SIGNED> By: Enio Cruz MD, FACC 01/05/201719 19 19Dasolange Cruz MD, FAC /INF
[2020-01-06] VITALS (7 sets, daily range): BP systolic 112–143; BP diastolic 45–76
[2020-01-06 05:27] LABS: HEMATOCRIT 24.8 % (42.0-52.0); HEMOGLOBIN 8.7 gm/dL (14.0-18.0); MCH 33.8 pg (26.0-34.0); MCV 96.6 fL (80.0-100.0); MPV 7.4 fl. (7.2-11.1); RBC 2.57 mil/uL (4.50-6.00); RDW-CV 14.7 % (10.5-14.5); WBC 11.7 thou/uL (4.0-11.0)
[2020-01-06 06:02] LABS: CALCIUM 8.2 mg/dL (8.5-10.1); TROPONIN-I LEVEL 0.54 ng/mL (<0.06)
[2020-01-06 06:08] LABS: CREATININE 9.4 mg/dL (0.6-1.3)
[2020-01-06] MEDS ORDERED: PLAVIX 75 MG TA75 MG PO (10:55)
--- NOTE | 2020-01-06 11:40 | EKG ---
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 : 1945 Requested By: Enio Cruz Order Number: [id number] Shaista MD: Binu Puga Measurements Intervals [place] Rate: 62 P: 42 DE: 219 QRS: 15 QRSD: 89 T: 94 QT: 413 QTc: 420 Interpretive Statements Sinus rhythm Borderline prolonged DE interval Borderline T wave abnormalities Compared to ECG 01/03/2020 08:15:08 T-wave abnormality now present Early repolarization no longer present Electronically Signed On 01-06-2020 11:38:56 CDT by Binu Puga [email or web address] <ELECTRONICALLY SIGNED> By: Binu Puga MD, FACC 01/06/20 1138 0427 0427 Binu Puga MD, FAC /EPI
== END 2020-01-06 13:35 | disposition home or self-care (01) | DRG 246 ==
LOC: M.ERS 05:48 → M.TBA-ER 06:59 → M.2W 06:59 → M.TBA-ER 07:06 → M.2W 11:47
PROVIDERS: Internal Medicine Cardiovascular Disease; Personal Emergency Response Attendant; ADMIT Internal Medicine
PROC: B211YZZ Fluoroscopy of Multiple Coronary Arteries using Other Contrast (ICD-10-PCS; principal; 2020-01-02)
PROC: 4A023N7 Measurement of Cardiac Sampling and Pressure, Left Heart, Percutaneous Approach (ICD-10-PCS; principal; 2020-01-02)
PROC: B215YZZ Fluoroscopy of Left Heart using Other Contrast (ICD-10-PCS; principal; 2020-01-02)
PROC: 027035Z Dilation of Coronary Artery, One Artery with Two Drug-eluting Intraluminal Devices, Percutaneous Approach (ICD-10-PCS; principal; 2020-01-02)
PROC: 5A1D70Z Performance of Urinary Filtration, Intermittent, Less than 6 Hours Per Day (ICD-10-PCS; principal; 2020-01-02)
PROC: 4A023N7 Measurement of Cardiac Sampling and Pressure, Left Heart, Percutaneous Approach (ICD-10-PCS; 2020-01-05)
PROC: 027135Z Dilation of Coronary Artery, Two Arteries with Two Drug-eluting Intraluminal Devices, Percutaneous Approach (ICD-10-PCS; 2020-01-05)
PROC: 5A1D70Z Performance of Urinary Filtration, Intermittent, Less than 6 Hours Per Day (ICD-10-PCS; 2020-01-05)
PROC: B211YZZ Fluoroscopy of Multiple Coronary Arteries using Other Contrast (ICD-10-PCS; 2020-01-05)
PROC: 5A1D70Z Performance of Urinary Filtration, Intermittent, Less than 6 Hours Per Day (ICD-10-PCS; 2020-01-06)
DX: I21.4 Non-ST elevation (NSTEMI) myocardial infarction (principal); N18.6 End stage renal disease; I12.0 Hypertensive chronic kidney disease with stage 5 chronic kidney disease or end stage renal disease; E78.5 Hyperlipidemia, unspecified; F43.10 Post-traumatic stress disorder, unspecified; E74.39 Other disorders of intestinal carbohydrate absorption; E78.00 Pure hypercholesterolemia, unspecified; N40.0 Benign prostatic hyperplasia without lower urinary tract symptoms; D63.1 Anemia in chronic kidney disease; I25.118 Atherosclerotic heart disease of native coronary artery with other forms of angina pectoris; Z99.2 Dependence on renal dialysis; Z95.5 Presence of coronary angioplasty implant and graft; Z79.82 Long term (current) use of aspirin; Z79.899 Other long term (current) drug therapy; Z88.8 Allergy status to other drugs, medicaments and biological substances; Z87.891 Personal history of nicotine dependence; Z98.49 Cataract extraction status, unspecified eye

== ENCOUNTER 2020-02-08 22:41 | Inpatient (IN) | payer MEDICARE ==
[~2020-02-08] VITALS: Ht 167.6 cm; Wt 80.6 kg
[~2020-02-08 22:41] MED LIST changes: +PLAVIX 75 MG TA75 MG PO
[2020-02-08 22:43] VITALS: BP 166/85
[2020-02-08 23:10] LABS: ABSOLUTE EOSINOPHILS 0.1 thou/uL (0.0-0.7); ABSOLUTE LYMPHOCYTES 1.3 thou/uL (0.8-5.3); ABSOLUTE MONOCYTES 0.9 thou/uL (0.0-1.2); ABSOLUTE NEUTROPHILS 4.4 thou/uL (1.6-8.1); BASOPHILS 0.6 %; EOSINOPHILS 1.6 %; HEMATOCRIT 29.8 % (42.0-52.0); HEMOGLOBIN 10.3 gm/dL (14.0-18.0); LYMPHOCYTES 18.8 %; MCH 34.6 pg (26.0-34.0); MCHC 34.6 g/dL (28.0-37.0); MCV 99.9 fL (80.0-100.0); MONOCYTES 13.5 %; MPV 7.2 fl. (7.2-11.1); NUCLEATED RBCS 0 /100WBC; PLATELET COUNT* 221 thou/uL (150-400); POLYS 65.5 %; RBC 2.98 mil/uL (4.50-6.00); RDW-CV 14.5 % (10.5-14.5); WBC 6.7 thou/uL (4.0-11.0)
[2020-02-08 23:21] LABS: CALCIUM 8.4 mg/dL (8.5-10.1); CREATININE 11.6 mg/dL (0.6-1.3)
[2020-02-08 23:28] LABS: APTT 27.3 Seconds (25.0-31.3); PROTIME 10.7 Seconds (9.20-11.50)
[2020-02-08 23:33] LABS: ALBUMIN 3.8 g/dL (3.4-5.0); CK-MB MASS 1.8 ng/mL (<0.5-3.6); MAGNESIUM 2.4 mg/dL (1.8-2.4); TOTAL BILIRUBIN 0.5 mg/dL (<0.1-1.0); TOTAL PROTEIN 7.9 g/dL (6.4-8.2)
[2020-02-09 00:56] VITALS: BP 161/73
[2020-02-09] MEDS ORDERED: REQUIP 0.25 M0.25 MG PO (01:19)
[2020-02-09 01:20] VITALS: BP 142/74
[2020-02-09 04:00] VITALS: BP 125/61
--- NOTE | 2020-02-09 04:44 | NUR ---
RECEIVED PT FROM ER AT 0120. GET SITUATED TO ROOM. AOX4, UP SBA. TELE IN PLACED TRACING SINUS RHYTHM. PT COMPLAINS OF MILD CHEST PAIN RATED 2. ADMISSION ASSESSMENT CHARTED. MEDS RECONCILED. PT L ARM LIMB ALERT, DIALYSIS SHUNT THRILL AND BRUIT. PT FOR SCHED FOR DIALYSIS TODAY. (MWF) OLIGURIC. LAST BM 02/08/20. PT HAS CARDIOLOGY AND NEPHROLOGY CONSULT. NPO MIDNIGHT. CALL LIGHT WITHIN REACH, HOURLY ROUNDING OBSERVED WILL CONTINUE TO MONITOR.
[2020-02-09 07:30] VITALS: BP 115/52
--- NOTE | 2020-02-09 12:29 | CON ---
[address] [address] CONSULTATION Name: RYANFOZIA DUQUE Hugo Room: [address] Valentin Bermudez#: [id number] Admission: 02/08/20 Attend Phys: Hugo Chávez Discharge: Date of : 47 Report #: [id number] THIS REPORT FOR: //name// cc: Kamron Baron MD, Santosh MD ~ THIS REPORT FOR: //name// CC: Kamron Pool CARDIOLOGY CONSULTATION HISTORY OF PRESENT ILLNESS: I was asked by Dr. Pool to see this 75-year-old white male in Cardiology consultation for evaluation and treatment of chest pain. This man additionally has a minimal elevation of his troponin. The initial 2 troponins were negative; however, the third troponin, which was some 7 hours after the first one was 0.08. He also had a BNP of 5939. However, he has end-stage renal disease, on dialysis. Of note is that his total CPK was only 149 and his CK-MB was only 1.8. Note also his estimated GFR is 4. He has a history of coronary artery disease and previous stents. He had stents about a month ago besides his end-stage renal disease. He has essential hypertension, hypercholesterolemia, and prediabetes. He does not smoke. His chest pain came on spontaneously. It was substernal. It was dull. It was 8 on a scale of 10. It was like his previous cardiac pain. It did radiate into his right shoulder, his neck, jaw and back. Pain lasted an hour and a half. Note, this man does have a family history of coronary artery disease. He has a brother with bypass graft surgery and 2 sisters with stents. PAST MEDICAL HISTORY: As described above. He is currently pain free. He has not had any subsequent pain. He apparently did get aspirin in the Emergency Room. PAST MEDICAL HISTORY: As described above. Note, his EKG demonstrates normal sinus rhythm. It is fairly normal EKG. ALLERGIES: HE IS ALLERGIC TO LISINOPRIL, NIACIN, SIMVASTATIN, AND TERAZOSIN. HOME MEDICATIONS: Include aspirin 81 mg daily, atorvastatin 40 mg daily, tamsulosin or Flomax 0.4 mg daily, fluconazole nasal spray daily, p.r.n. nitroglycerin, Xanax 0.5 mg p.r.n., sertraline 200 mg daily, albuterol 2 puffs q.8 hours p.r.n. wheezing and shortness of air, Wellbutrin 300 mg daily, daily vitamin, 1000 mg of fish oil daily, prazosin 1 mg at bedtime, Renvela 0.8 grams t.i.d., trazodone 50 mg at bedtime, Toprol-XL 25 mg at bedtime, Plavix 75 mg daily and Requip 0.25 mg daily at bedtime. SOCIAL HISTORY: He used to smoke. He quit some time ago. He does not drink [place] [address] CONSULTATION Name: FOZIA ALONSO [address] [id number] Admission: 02/08/20 Attend Phys: Hugo Chávez Discharge: Date of : 46 Report #: [id number] REVIEW OF SYSTEMS: Negative except as per the history of present illness and past medical history. Please see our review of symptoms form for details of the negatives. He is negative for some 40 different complaints. Systems reviewed include central nervous system, general, respiratory, cardiovascular, endocrine, gastrointestinal, genitourinary, hematologic, lymphatic, allergic, immunologic, psychiatric, musculoskeletal, skin, eyes, ears, nose, mouth, and throat. PHYSICAL EXAMINATION: GENERAL: He presents as a well-developed, well-nourished white male in no acute distress. VITAL SIGNS: His pulse was 70, blood pressure was 125/61, respirations are 15 and regular, temperature is 97.4. HEENT: His head was atraumatic. Eyes clear. NECK: Supple. There is no jugular venous distention or hepatojugular reflux. Thyroid is not enlarged. There is no adenopathy. SKIN: Warm and dry. Mucous membranes are moist. LUNGS: Clear to auscultation and percussion. HEART: Revealed normal first and second heart sound. There is soft S4. There is no S3. There are no murmurs, rubs, thrills, heaves or gallops. PMI is nondisplaced. ABDOMEN: Soft, flat and nontender. No palpable masses, no organomegaly. EXTREMITIES: Reveal no cyanosis, clubbing or edema. NEUROLOGIC: The patient mentated normally, talked normally, moved all extremities normally. IMPRESSION: 1. Chest pain that likely represents an acute coronary syndrome or unstable angina. 2. Coronary artery disease. 3. Status post coronary artery stents. 4. End-stage renal disease. 5. Essential hypertension. 6. Hypercholesterolemia. 7. Prediabetes. RECOMMENDATION: He should have cardiac catheterization and coronary angiography that will be performed tomorrow. Thank you very much for asking me to see the patient. If there are any questions, please feel free to contact me. <ELECTRONICALLY SIGNED> By: Tamara Zepeda MD, [facility] 02/09/20 1229 1111 [id number]. Harjeet Zepeda MD, FACC /nt
--- NOTE | 2020-02-09 14:11 | EKG ---
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: : 1945 Requested By: Tuan Dunaway Order Number: [id number] MD: Enio Cruz Measurements Intervals [place] Rate: 74 P: 46 WI: 199 QRS: 17 QRSD: 90 T: 31 QT: 400 QTc: 444 Interpretive Statements sinus rhythm with pac's artifact noted Nonspecific repol abnormality, lateral leads Compared to ECG 01/06/2020 04:27:34 T-wave abnormality no longer present Electronically Signed On 02-09-2020 14:09:35 CDT by Enio Cruz [email or web address] <ELECTRONICALLY SIGNED> By: Enio Cruz MD, [facility] 02/09/20 1409 2243 2243 Enio Cruz MD, FAC /EPI
[2020-02-09 16:00] VITALS: BP 119/52
[2020-02-09 20:00] VITALS: BP 134/53
[2020-02-10] VITALS (21 sets, daily range): BP systolic 101–191; BP diastolic 42–93
[2020-02-10 05:12] LABS: CHOLESTEROL 104 mg/dL (<200); HDL CHOLESTEROL 44 mg/dL (>40); LDL CHOLESTEROL 45 mg/dL (<100); TC:HDL 2.4 Ratio (Not establshd); TRIGLYCERIDE 76 mg/dL (<150); VLDL 15 mg/dL (<40)
[2020-02-10 05:15] LABS: SERUM ASSESSMENT Clear
--- NOTE | 2020-02-10 06:44 | NUR ---
ASSUMED CARE OF PT AFTER REPORT AT 1930. PT A&X4. VSS. PHYSICAL ASSESSMENT COMPLETED AND CHARTED. PT ON RA. PT TRACING SR ON TELE. PT UPADLIB TO RESTROOM. PT HAD ONE TIME EPISODE OF CHEST PAIN-RADIATES TO RIGHT ARM & JAW. EKG SHOWS SR. PT DENIES PAIN AFTER NITRO GIVEN. INSTRUCTED ON NPO POST MIDNIGHT FOR CARDIAC CATH TODAY. COMMUNICATES UNDERSTANDING. PT ABLE TO SLEEP WELL ONBED. CALL LIGHTWITHIN REACH.
--- NOTE | 2020-02-10 10:28 | CON ---
[facility] [address] [place] [address] CONSULTATION Name: RYANFOZIA DUQUE Hugo Room: [address] Aidan#: [id number] Admission: 02/08/20 Attend Phys: Hugo Chávez Discharge: Date of : 47 Report #: [id number] THIS REPORT FOR: //name// cc: Kamron Baron MD, Santosh MD ~ THIS REPORT FOR: //name// CC: Kamron Pool DATE OF SERVICE: 02/09/2020 REQUESTING PHYSICIAN: Dr. Pool REASON FOR CONSULTATION: Assist in providing dialysis. HISTORY OF PRESENT ILLNESS: The patient is a very pleasant 75-year-old gentleman with medical history significant for coronary artery disease, hypertension, and end-stage renal disease. The patient presents to Emergency Room with complaint of chest pain. He had angioplasty done of his coronaries and stent placement several weeks ago. Obviously concerned for his coronary artery disease. Cardiology is on the case. His dialysis schedule is Sunday, Sunday, and Sunday. FAMILY HISTORY: Noncontributory. SOCIAL HISTORY: No tobacco, no alcohol abuse. REVIEW OF SYSTEMS: Positive for chest pain earlier, the pain has resolved now. Rest of the systems reviewed and negative. PHYSICAL EXAMINATION: GENERAL: Awake, alert, oriented, no acute distress at the time of my examination. VITAL SIGNS: Blood pressure 115/52, heart rate 63, afebrile. HEENT: Pupils are round. NECK: Supple. LUNGS: Clear. CARDIOVASCULAR: Regular rate. ABDOMEN: Soft. EXTREMITIES: Lower extremities with no edema. He has left radiocephalic fistula, which is patent. ASSESSMENT: 1. End-stage renal disease, dialysis on Sunday, Sunday, [place] [address] CONSULTATION Name: FOZIA ALONSO Room: [address]#: [id number] Admission: 02/08/20 Attend Phys: Hugo Chávez Discharge: Date of : 47 Report #: [id number] 2. Coronary artery disease. 3. History of hypertension. PLAN: 1. Dialysis today. 2. Cardiology consultation. <ELECTRONICALLY SIGNED> By: Syd Nassar MD 02/10/20 1028 1010 1353Aanat Nassar MD /nt
--- NOTE | 2020-02-10 15:14 | NUR ---
Pt is A&O. Resides at home alone. Independent. Pt is current at [facility] on a MWF schedule, 615am chair time. No DME. No hx of HH or SNF. [place]. Pt to have heart cath today. CM updated Angie at [facility]. [facility] p:[phone] f:[phone]
--- NOTE | 2020-02-10 16:22 | EKG ---
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 : 1945 Requested By: Tamara Zepeda Order Number: [id number] Shaista MD: Walter Willett Measurements Intervals [place] Rate: 67 P: 39 WV: 197 QRS: 5 QRSD: 83 T: 9 QT: 445 QTc: 470 Interpretive Statements Sinus rhythm Inferior infarct, old possible Baseline wander in lead(s) V6 Compared to ECG 02/08/2020 22:43:45 Myocardial infarct finding now present Early repolarization no longer present Electronically Signed On 02-10-2020 16:20:27 CDT by Walter Willett [email or web address] <ELECTRONICALLY SIGNED> By: Walter Willett MD, FAC 02/10/20 162 19 19 Walter Willett MD, FAC /EPI
--- NOTE | 2020-02-10 16:24 | EKG ---
[place] [address] ELECTROCARDIOGRAM REPORT Name: FOZIA ALONSO Room: [address] ADM IN M.R.#: [id number] Admission: 02/10/20 Attend Phys: Ariel Pool Discharge: Date of : 47 Date of Service: 02/09/202041 Report #: [id number] THIS REPORT FOR: //name// [facility] Test Date: 2020-02-09 Test Time: 20:42:39 Pat Name: FOZIA ALONSO Department: Room: [address] Gender: M Rn Occupational Health: : 1945 Requested By: Tamara Zepeda Order Number: [id number] Shaista MD: Walter Willett Measurements Intervals [place] Rate: 81 P: 45 AK: 181 QRS: 21 QRSD: 99 T: 44 QT: 390 QTc: 453 Interpretive Statements Sinus rhythm Low voltage, precordial leads Minimal ST depression, lateral leads Baseline wander in lead(s) I,V1,V2 Compared to ECG 02/08/2020 22:43:45 Low QRS voltage now present ST (T wave) deviation now present Early repolarization no longer present Electronically Signed On 02-10-2020 16:22:19 CDT by Walter Willett [email or web address] <ELECTRONICALLY SIGNED> By: Walter Willett MD, [facility] 02/10/201621 41 41 Walter Willett MD, [facility] /EPI
--- NOTE | 2020-02-10 16:27 | EKG ---
[place] [address] ELECTROCARDIOGRAM REPORT Name: FOZIA ALONSO Room: [address] ADM IN M.R.#: [id number] Admission: 02/10/20 Attend Phys: Ariel Pool Discharge: Date of : 47 Date of Service: 02/10/2023 Report #: [id number] THIS REPORT FOR: //name// [facility] Test Date: 2020-02-10 Test Time: 09:23:22 Pat Name: FOZIA ALONSO Department: Room: [address] Gender: M Spine Nurse: : 1945 Requested By: Tamara Zepeda Order Number: [id number] Reading MD: Walter Willett Measurements Intervals [place] Rate: 71 P: 43 MA: 182 QRS: 4 QRSD: 83 T: 2 QT: 425 QTc: 462 Interpretive Statements Sinus rhythm Inferior infarct, old Compared to ECG 02/08/2020 22:43:45 Myocardial infarct finding now present Early repolarization no longer present Electronically Signed On 02-10-2020 16:25:34 CDT by Walter Willett [email or web address] <ELECTRONICALLY SIGNED> By: Walter Willett MD, [facility] 02/10/20 1625 0923 0923 Walter Willett MD, [facility] /EPI
--- NOTE | 2020-02-10 16:44 | NUR ---
ASSUMED PT CARE REPORT RECEIVED FROM NURSE. PT IS AOX4. ON RA. TRACING SR ON STORE LOSS PREVENTION MANAGER. COMPLAINS OF PAIN IN CHEST AND AXIOUS. MORNING MEDS GIVEN. SEE CHART. PT WENT FOR CARDIAC CATH. CONSENT WAS SIGNED AND WITNESSED AT BEDSIDE. PT CAME BACK FROM CHARHOUSE WORKER AT 1600 ACCOMPANIED BY THE CARDIAC CATH NURSE. IV FLUID INFUSING ORDERED. DIET RE-ORDERED. PT COMPLAINS OF CHEST PAIN. MORPHINE GIVEN. PT KEPT ON 2 L NC. VS BEING MONITORED EVERY 15 MINUTES POST CARDIAC CATH. RIGHT GROIN SITE IS INTACT. PT INSTRUCTED TO STAY ON BEDREST UNTILL 1999. CALL LIGHT AT REACH. WILL CONTINUE TO MONITOR PT.
--- NOTE | 2020-02-10 17:26 | NUR ---
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 PT IS ALREADY UP IN CHAIR ALTHOUGH THIS NURSE WARNED PT ABOUT THE POSSIBILITY OF BLEDDING. PT DECIDED TO GET OUT OF BED AND SIT IN RECLINER STATING THAT " I WON'T BLEED, I KNOW HOW TO WALK". PT NOW EATING DINER. IV FLUID INFUSING. WILL CONTINUE TO MONITOR PT.
[2020-02-11 00:22] VITALS: BP 124/54
[2020-02-11 04:13] VITALS: BP 108/55
--- NOTE | 2020-02-11 05:04 | NUR ---
ASSUMED CARE OF PT AFTER REPORT AT 1930. PT A&OX4. VSS. PHYSICAL ASSESSMENT COMPLETED AND CHARTED. PT ON RA. PT TRACING SR ON TELE. PT UPADLIB TO RESTROOM. POST CATH SITE TO RIGHT GROIN DRESSING CLEAN, DRY & INTACT. BRIUSING NOTED BUT NO BLEEDING. PT DENIES ANY CHEST PAIN AT THIS PAIN. CALL LIGHT WITHIN REACH.
[2020-02-11 08:00] VITALS: BP 108/55
[2020-02-11 11:58] VITALS: BP 101/60
--- NOTE | 2020-02-11 12:48 | NUR ---
Pt discharging to home today, faxed H&P, prog notes and flowsheets to Dario NUNES.
[2020-02-11 12:49] VITALS: BP 101/60
--- NOTE | 2020-02-11 13:31 | NUR ---
ASSUMED PT CARE REPORT RECEIVED FROM NURSE PT IS AOX4. ON RA. TRACING SR ON ACCOUNT PROCESSOR. HAD DIALYSIS DONE THIS AM. DISCHRGE ORDERED AFTER HD. IV LINE REMOVED. HEART MONITOR RETRIEVED. PT LEFT FLOOR AT 1330 ACCOMPANIED BY NURSING STAFF ON WHEELCHAIR. FAMILY PICKED UP.
--- NOTE | 2020-02-11 14:40 | CARD ---
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 The right femoral was infiltrated with 2% Lidocaine subcutaneous anesthesia. A [place] 6 FR sheath was inserted into the RFA. Coronary angiography was performed using coronary diagnostic catheters. The right coronary system was accessed and visualized with a JR4 catheter. The left coronary system was accessed and visualized with a JL4 catheter. Pre-demployment femoral angiogram was performed . Closure device was deployed with a 6 Fr Angioseal STS 6Fr. The patient tolerated the procedure well and there were no complications associated with the procedure. There was no hematoma. Intraoperative Conscious Sedation Sedation start time: 1223 Case end Time: 1335 Fentanyl [address] [place] [address] CARDIAC CATH REPORT Name: FOZIA ALONSO Room: [address]#: [id number] Admission: 02/10/20 Attend Phys: Hugo Chávez Discharge: 02/11/20 Date of : 47 Report #: [id number] Fluoro Time: 11.2 minutes Dose: DAP 53606 cGycm2 983 1335 1335 mGy Contrast Type and Amount: Visipaque 320 ml Diagnostic Cath Left Main 40% distal narrowing LAD 40% proximal LAD narrowing with 80% eccentric mid LAD stenosis; there is a widely patent first diagonal stent Circumflex 0% narrowing Right Coronary 40% mid vessel narrowing on flush filling of the dominant right coronary artery Hemodynamics The aortic pressure is 126/51 mmHg with a mean of 73 mmHg. PCI Technique Lesion Anticoagulation was achieved with Angiomax. Patient was preloaded with Angiomax IV 12 ml. Percutaneous coronary intervention was performed on the mid left anterior descending artery segment. The lesion stenosis prior to intervention was 80% with YANIRA 3 flow. A 6FR LAUNCHER EBU 4.0 Guide Catheter was used to engage the Left ostium. A IG: BRYANT 190cm Interventional Guidewire was used to cross the lesion. BALLOON DILATION A Balloon catheter Euphora SC 2.0x12mm was inserted and inflated up to 16.00atm for 6seconds. STENT DEPLOYMENT A drug-eluting stent [place] RX Stent 2.5X30mm was inserted and inflated up to 15.00atm for 13seconds. POST STENT DEPLOYMENT BALLOON DILATION A Balloon catheter NC Euphora 2.5x12 was inserted and inflated up to 17.00atm for 6seconds. Final angiography reveals 0 % stenosis with YANIRA 3 flow. Conclusion 1. Significant coronary artery disease characterized by the following: A 40% proximal LAD narrowing with 80% eccentric mid LAD stenosis with a widely [place] [address] CARDIAC CATH REPORT Name: FOZIA ALONSO Room: [address]#: [id number] Admission: 02/10/20 Attend Phys: Hugo Chávez Discharge: 02/11/20 Date of : 47 Report #: [id number] B dominant right coronary with 40% mid vessel narrowing on flush filling C 40% distal left main coronary narrowing 2. Successful PCI with deployment of a drug-eluting stent at the site of 80% mid LAD stenosis with 0% residual narrowing and YANIRA-3 flow to the distal vessel; there was moderate impingement on the ostium of the first diagonal on final cineangiograms Recommendations Cardiac Risk Reduction Program Aggressive Medical Therapy Medications Administered Clopidogrel Diagnostic Cath Approved by: Binu Puga MD Date/Time: 02/11/2020 14:36:56 <ELECTRONICALLY SIGNED> By: Walter Willett MD, [facility] 02/11/20 1438 [id number] [id number] Willett MD, [facility] /INF
== END 2020-02-11 13:30 | disposition home or self-care (01) | DRG 246 ==
LOC: M.ERS 22:41 → M.2W 23:55 → M.TBA-ER 23:55 → M.2W 02-09 01:10
PROVIDERS: Family Medicine; Internal Medicine; ADMIT Internal Medicine
PROC: 5A1D70Z Performance of Urinary Filtration, Intermittent, Less than 6 Hours Per Day (ICD-10-PCS; principal; 2020-02-09)
PROC: 4A023N7 Measurement of Cardiac Sampling and Pressure, Left Heart, Percutaneous Approach (ICD-10-PCS; 2020-02-10)
PROC: 027034Z Dilation of Coronary Artery, One Artery with Drug-eluting Intraluminal Device, Percutaneous Approach (ICD-10-PCS; 2020-02-10)
PROC: B211YZZ Fluoroscopy of Multiple Coronary Arteries using Other Contrast (ICD-10-PCS; 2020-02-10)
DX: I21.4 Non-ST elevation (NSTEMI) myocardial infarction (principal); N18.6 End stage renal disease; I12.0 Hypertensive chronic kidney disease with stage 5 chronic kidney disease or end stage renal disease; I25.110 Atherosclerotic heart disease of native coronary artery with unstable angina pectoris; E78.00 Pure hypercholesterolemia, unspecified; R73.03 Prediabetes; D63.8 Anemia in other chronic diseases classified elsewhere; Z99.2 Dependence on renal dialysis; Z95.5 Presence of coronary angioplasty implant and graft; Z79.82 Long term (current) use of aspirin; Z79.891 Long term (current) use of opiate analgesic; Z79.899 Other long term (current) drug therapy; Z88.8 Allergy status to other drugs, medicaments and biological substances